=== PATIENT | male | born 1945 | race Caucasian/White ===

== ENCOUNTER → 2018-01-20 07:44 | Outpatient (CLI) | payer MEDICARE, OTHER, SELFPAY ==
--- NOTE | 2018-01-20 07:47 | DI.MRI.S_ITS ---
Caution: Report not yet finalized and possibly incomplete! PROCEDURE: MR HEAD/BRAIN WO/W CON INDICATIONS: hx of neoplasm in head. TECHNIQUE: Noncontrast axial T1 spin echo, axial T2 fast spin echo, sagittal and axial FLAIR, coronal T2 fast spin echo, axial gradient echo, axial diffusion and ADC through the brain. After the administration of contrast, axial and coronal 3D VIBE or T1 spin echo with fat saturation through the brain. COMPARISON: [facility], MR, BRAIN WITH CONTRAST, 03/19/2017, 18:16. [facility], MR, BRAIN WITHOUT CONTRAST, 01/05/2017, 7:51. [facility], CT, HEAD W&WO CONTRAST, 08/28/2016, 8:34. FINDINGS: Image quality: Excellent. CSF Spaces: Basal cisterns are patent. No extra-axial fluid collections. Ventricles are normal in size and shape. Brain: No midline shift. No intracranial bleeds or masses. There is moderate, diffuse cerebral volume loss. Mild periventricular and subcortical white matter chronic microvascular ischemic changes are noted. No abnormal intracranial enhancement. The brainstem appears normal. Diffusion-weighted images demonstrate no acute ischemic insults. No chronic ischemic insults. Small focus of subtle increased T2 signal and hypointense GRE signal identified in the left lamas radiata is stable in size and contour compared to 01/05/17. Subtle, striated postcontrast enhancement associated with the left lamas radiata lesion is stable compared to prior examination. Normal intravascular flow voids are present. Skull and face: Calvarial marrow is normal in signal. Orbits appear normal. Sinuses: Sinuses and mastoids appear clear. IMPRESSION: 1. Stable examination compared to 01/05/17 and 03/19/2017. 2. Small left lamas radiata lesion is stable in appearance compared to prior examinations. Dictated by: Mandi Rutherford MD, PhD on 01/20/2018 at 11:16 Approved by: Mandi Rutherford MD, PhD on 01/21/2018 at 9:23
[2018-01-20 08:14] LABS: Add Manual Diff / Slide Review NO; Basophils Percent Auto 0.9 % (0-2); Eosinophils Percent Auto 1.4 % (2-4); Hematocrit 35.6 % (41-53); Hemoglobin 12.5 g/dL (13.5-17.5); Mean Corpuscular HGB Conc 35.1 % (30-36); Mean Corpuscular Hemoglobin 33.6 PG (26-34); Mean Corpuscular Volume 95.6 fL (80-100); Monocytes Percent Auto 8.3 % (3-14); Neutrophils Absolute Auto 3200 /uL (3000-5900); Neutrophils Percent Auto 76.4 % (50-75); Platelet Count 188 X10^3/uL (150-400); Red Blood Cell Count 3.72 X10^6/uL (4.5-5.9); Red Cell Distribution Width 13.4 % (11.6-14.8); White Blood Cell Count 4.1 X10^3/uL (4.5-11.0)
[2018-01-20 08:31] LABS: Alanine Aminotransferase 26 IU/L (21-72); Albumin 4.1 g/dL (3.5-5.0); Albumin Globulin Ratio 1.5 (1.0-2.8); Alkaline Phosphatase 95 U/L (38-126); Aspartate Aminotransferase 39 IU/L (17-59); BUN Creatinine Ratio 11.3 (6-22); Bilirubin Total 0.4 mg/dL (0.2-1.3); Blood Urea Nitrogen 9 mg/dL (9-20); Calcium 8.8 mg/dL (8.4-10.2); Carbon Dioxide 33 mmol/L (22-32); Chloride 95 mmol/L (98-107); Estimated Glomerular Filt Rate > 60.0 mL/min (>60); Globulin 2.7 g/dL (1.7-4.1); Glucose 85 mg/dL (80-110); HEMOLYSIS < 15 (0-50); Potassium 3.6 mmol/L (3.4-5.1); Sodium 136 mmol/L (137-145); Total Protein 6.8 g/dL (6.3-8.2)
[2018-01-20 08:53] LABS: Free T3, Triiodothyronine Free 1.61 pg/mL (2.77-5.27)
[2018-01-20 10:48] LABS: Appearance Urine UA CLEAR; Bilirubin Urine UA NEGATIVE (NEGATIVE); Color Urine UA YELLOW; Glucose Urine UA NEGATIVE (Normal); Ketones Urine UA NEGATIVE (NEGATIVE); Leukocyte Esterase Urine UA NEGATIVE (NEGATIVE); Nitrite Urine UA NEGATIVE (Negative); Occult Blood Urine UA NEGATIVE (Negative); Protein Urine UA NEGATIVE (Negative); Specific Gravity Urine UA 1.015 (1.000-1.035); Urobilinogen Urine UA 0.2 E.U./dL (0.2)
== END ==
PROVIDERS: PCP Family Medicine; Visit Provider Family Medicine
DX: R41.3 Other amnesia (principal); G93.9 Disorder of brain, unspecified; E03.9 Hypothyroidism, unspecified; G30.9 Alzheimer's disease, unspecified; F02.80 Dementia in other diseases classified elsewhere, unspecified severity, without behavioral disturbance, psychotic disturbance, mood disturbance, and anxiety; Z51.81 Encounter for therapeutic drug level monitoring; Z85.89 Personal history of malignant neoplasm of other organs and systems
CPT/HCPCS: 36415; 70553; 80053; 81003; 84439; 84443; 84481; 85025; A9579

== ENCOUNTER → 2018-02-07 14:26 | Outpatient (CLI) | payer MEDICARE, OTHER, SELFPAY ==
[2018-02-07 15:37] LABS: Add Manual Diff / Slide Review NO; Basophils Percent Auto 0.9 % (0-2); Eosinophils Percent Auto 0.7 % (2-4); Hematocrit 37.9 % (41-53); Lymphocytes Percent Auto 12.9 % (25-40); Mean Corpuscular HGB Conc 34.2 % (30-36); Mean Corpuscular Hemoglobin 33.3 PG (26-34); Mean Corpuscular Volume 97.3 fL (80-100); Monocytes Percent Auto 9.4 % (3-14); Neutrophils Absolute Auto 3200 /uL (3000-5900); Neutrophils Percent Auto 76.1 % (50-75); Platelet Count 200 X10^3/uL (150-400); Red Blood Cell Count 3.89 X10^6/uL (4.5-5.9); Red Cell Distribution Width 13.2 % (11.6-14.8); White Blood Cell Count 4.3 X10^3/uL (4.5-11.0)
[2018-02-07 15:47] LABS: Alanine Aminotransferase 37 IU/L (21-72); Albumin 4.5 g/dL (3.5-5.0); Albumin Globulin Ratio 1.5 (1.0-2.8); Alkaline Phosphatase 66 U/L (38-126); Aspartate Aminotransferase 28 IU/L (17-59); BUN Creatinine Ratio 21.3 (6-22); Bilirubin Total 0.8 mg/dL (0.2-1.3); Blood Urea Nitrogen 17 mg/dL (9-20); Calcium 9.4 mg/dL (8.4-10.2); Carbon Dioxide 32 mmol/L (22-32); Chloride 99 mmol/L (98-107); Estimated Glomerular Filt Rate > 60.0 mL/min (>60); Glucose 102 mg/dL (80-110); HEMOLYSIS < 15 (0-50); Potassium 4.3 mmol/L (3.4-5.1); Sodium 141 mmol/L (137-145); Total Protein 7.5 g/dL (6.3-8.2)
== END ==
PROVIDERS: Family Provider Family Medicine; PCP Family Medicine; Visit Provider Internal Medicine Hematology & Oncology
DX: Z08 Encounter for follow-up examination after completed treatment for malignant neoplasm (principal); Z85.818 Personal history of malignant neoplasm of other sites of lip, oral cavity, and pharynx
CPT/HCPCS: 36415; 80053; 85025

== ENCOUNTER → 2018-02-14 12:58 | Oncology outpatient (ONC) | payer MEDICARE, OTHER, SELFPAY ==
--- NOTE | 2018-02-14 13:23 | ONC.PN ---
PN -Subjective Interval history: Mr. 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 Thereafter patient has been followed by Dr. Tristan Souza as well as at [facility]. He was evaluated by Dr. Del Cid about a year ago. No evidence of disease recurrence or metastasis. He presents here today for scheduled once a year follow-up visit. He is still seeing Dr. Souza. The most recent visit was within last 6 months according to his brother Kaity. Patient lives across where Dr. Souza lives. Dr. Souza did not see any new growth, no follow up visit and no referral. Patient has left neck tightness and pain. He is seen by Dr. Adler and Dr. Tyrell Street and is getting Botox injection every 3 months. He felt better, and neck becomes less tight. He does not have dysphagia. He is still feeling dryness of the mouth. He does not have any new pain. During today's visit, he seems to have problems with memory. He seems not able to understand some questions correctly. No headache. He has good appetite. No nausea and vomiting. No abdminal pain. No diarrhea and no constipation. He is being followed at [facility] for Alzheimer's dissease. - Additional ROS All systems PM: reviewed and no additional remarkable complaints except as stated Home Medications and Allergies Home Medications Medication Instructions Recorded Confirmed Type [MULTIVITAMIN] #0 10/19/12 02/14/18 History [OMEGA 3] QWEEK #0 10/19/12 02/14/18 History nifedipine 30 mg PO QDAY #30 tab 04/06/17 02/14/18 Rx donepezil [Aricept] 10 mg PO HS #90 tab 05/18/17 02/14/18 Rx cyclobenzaprine 10 mg PO HS PRN 02/14/18 History levothyroxine 200 mcg tablet 200 mcg PO DAILY #30 tab 02/14/18 Rx Allergies Allergy/AdvReac Type Severity Reaction Status Date / Time No Known Drug Allergies Allergy Verified 02/14/18 09:33 Exam Vital signs: Last Vital Signs Temp 98.1 F 02/14/18 13:24 Pulse 62 02/14/18 13:24 Resp 18 02/14/18 13:24 BP 144/82 H 02/14/18 13:24 Pulse Ox 98 02/14/18 13:24 ECOG 1 Narrative: Constitutional: WDWN, NAD, average body habitus, well groomed, pleasant and cooperative, accompanied by his brother HEENT: NCAT, EOMI, PERRLA, anicteric sclera, no hearing difficulty; Oral mucus membrane moist and without ulcers. Neck: Supple, symmetrical, and tracheal midline; No palpable thyromegaly and no palpable lymph nodes. Respiratory: No use of accessory muscles. Clear to auscultation, and no wheezes or rales or rubs. Cardiovascular: Regular rate and rhythm, S1 and S2 normal, no murmurs gallops or rubs. No JVD. No pitting edema of lower extremities. Abdomen: Soft, nontender, non-distended, bowel sounds normal, no palpable organomegaly, no hernia, no palpable masses. Lower extremities: No palpable pedal edema. Lymphatic: no palpable lymph nodes in the neck, axillae, or groins. Musculoskeletal: normal gait and station, no clubbing, no cyanosis, no pitting edema. Skin: no rashes, no ulcers, no petechiae Neurological: Awake and alert and oriented x3. CN II-XII grossly intact. No focal motor or sensory deficit. Psychiatric: normal affect, cooperative, no depression, no anxiety. Not able to understand and answer questions appropriately. Results - Labs Reviewed. Assessment and Plan (1) History of malignant neoplasm of head and neck Assessment and Plan: Clinically I do not think there is any a dense disease recurrence or metastasis. And I agree with Dr. albrecht it is most likely that his left-sided tonsil squamous cell carcinoma have been cured. I talked with the patient and encouraged him to continue to follow up with ENT physician Dr. Tristan Souza as scheduled. And I will schedule him to come back to see us in about a year.
[2018-02-14 13:24] VITALS: BP 144/82; PULSE 62; RESP 18; TEMP 36.7; O2SAT 98
== END ==
PROVIDERS: Family Provider Family Medicine; PCP Family Medicine; Visit Provider Internal Medicine Hematology & Oncology
DX: Z08 Encounter for follow-up examination after completed treatment for malignant neoplasm (principal); Z85.818 Personal history of malignant neoplasm of other sites of lip, oral cavity, and pharynx
CPT/HCPCS: 99214

== ENCOUNTER 2018-03-03 01:45 | Emergency (ER) | payer MEDICARE, OTHER, SELFPAY ==
[2018-03-03 02:05] VITALS: BP 171/96; PULSE 83; RESP 17; TEMP 36.6; O2SAT 100; BMI 19.0
--- NOTE | 2018-03-03 02:24 | ED.AMS ---
HPI - Altered Mental Status General Chief Complaint: Altered Mental Status Stated Complaint: OUT OF IT AND CONFUSED Time Seen by Provider: 03/03/18 01:54 Source: patient Mode of arrival: ambulatory Limitations: altered mental status History of Present Illness HPI narrative: 72-year-old male, former smoker presents with confusion. He is brought by police for evaluation and was found wandering. He lives locally and has had extensive workups for his gradual onset Alzheimer's. He denies any symptoms and there are no signs of obvious injury. MD complaint: confusion Onset (ago): unknown Severity: moderate Context: history of similar presentation Associated symptoms: denies other symptoms Related Data Home Medications Medication Instructions Recorded Confirmed [MULTIVITAMIN] #0 10/19/12 02/14/18 [OMEGA 3] QWEEK #0 10/19/12 02/14/18 cyclobenzaprine 10 mg PO HS PRN 02/14/18 Previous Rx's Medication Instructions Recorded nifedipine 30 mg PO QDAY #30 tab 04/06/17 donepezil [Aricept] 10 mg PO HS #90 tab 05/18/17 levothyroxine 200 mcg tablet 200 mcg PO DAILY #30 tab 02/14/18 Allergies Allergy/AdvReac Type Severity Reaction Status Date / Time No Known Drug Allergies Allergy Verified 02/14/18 09:33 Review of Systems Review of Systems All systems reviewed & are unremarkable except as noted in HPI and below Constitutional Denies chills, Denies fever(s), Denies lethargy and Denies weakness Eyes Denies change in vision, Denies eye discharge, Denies irritation and Denies loss of vision ENT Ears, Nose, Mouth, and Throat: Denies change in voice, Denies neck pain and Denies sore throat Cardiovascular Denies chest pain, Denies irregular heart rhythm, Denies lightheadedness, Denies palpitations, Denies dyspnea, Denies dyspnea on exertion and Denies orthopnea Respiratory Denies cough, Denies dyspnea, Denies dyspnea on exertion and Denies wheezing Gastrointestinal Gastrointestinal: Denies abdominal pain, Denies change in bowel habits, Denies diarrhea, Denies nausea and Denies vomiting Genitourinary Denies hematuria, Denies flank pain, Denies urinary incontinence and Denies urinary urgency Musculoskeletal Denies neck pain Integumentary/Breasts Denies pruritus, Denies erythema, Denies rash and Denies wounds Neurologic Reports confusion, Denies loss of vision and Denies weakness Psychiatric Denies anxiety, Reports confusion, Denies depression, Denies homicidal ideation and Denies suicidal ideation Endocrine Denies palpitations Hematologic/Lymphatic Denies easy bruising Allergic/Immunologic Denies wheezing Exam Narrative Exam Narrative: GEN: Pleasantly confused, he knows his name and that he is from [place] but is unclear on his address. He does state he lives alone EYES: Pupils are equal, round, and reactive to light and accommodation. Extraoccular muscles are intact bilaterally. There is no subconjunctival hemorrhage or exudate. CHEST: Lungs are clear to auscultation bilaterally and free of wheezes, rales, or rhonchi. Heart rate is regular rhythm, there are no murmurs, clicks, rubs, or gallops. There is no chest wall tenderness. ABD: Abdomen is soft and nontender. There is no guarding or rebound. Bowel sounds are normal in all 4 quadrants. There is no mass or organomegaly. EXT: Full painless ROM of all extremities with no loss of sensation or strength. SKIN: Warm, pink, and dry. 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 He states that this is the baseline for his brother and he wants to come pick him up and take him home to take care of him. He requests that we do not perform any testing as this has been done on multiple occasions Vital Signs - 8 hr 03/03/18 02:05 Temperature 97.9 F Pulse Rate 83 Respiratory Rate 17 Blood Pressure 171/96 H Pulse Oximetry 100 Discharge Plan Departure Patient Disposition: Home Clinical Impression: Dementia Instructions: Dementia Activity Restrictions/Additional Instructions: *You have been diagnosed with [dementia ] *What to do: * continue to take medications as directed *Follow up with your primary care provider in 2-3 days, call for an appointment. Let them know you were seen in the Emergency Department and that we ask that you be seen in follow up *Return to ER if you should have any new, worsening or concerning symptoms Prescriptions: No Action levothyroxine 200 mcg tablet 200 mcg PO DAILY Qty: 30 RF: 2 [MULTIVITAMIN] Qty: 0 RF: 0 [OMEGA 3] QWEEK Qty: 0 RF: 0 nifedipine 30 MG tablet extended release 24hr 30 mg PO QDAY Qty: 30 RF: 3 donepezil [Aricept] 10 MG tablet 10 mg PO HS Qty: 90 RF: 3 cyclobenzaprine 10 MG tablet 10 mg PO HS PRN (Reason: Muscle Pain) RF: 0
--- NOTE | 2018-03-03 02:29 | PC.NURSE ---
I spoke to his brother Kaity who is a retired dentist and lives near [place].He told me he would come and take his brother home with him.He told me his brother was recently diagnosed with dementia at the the [facility]
[2018-03-03 03:35] VITALS: BP 166/85; PULSE 80; RESP 16; O2SAT 98
== END 2018-03-03 03:37 | disposition home or self-care (01) ==
PROVIDERS: Emergency Provider Emergency Medicine; Family Provider Family Medicine; PCP Family Medicine
DX: F03.90 Unspecified dementia, unspecified severity, without behavioral disturbance, psychotic disturbance, mood disturbance, and anxiety (principal)
CPT/HCPCS: 99282

== ENCOUNTER → 2018-05-16 10:42 | Outpatient (CLI) | payer MEDICARE, OTHER, SELFPAY ==
[2018-05-16 12:17] LABS: Free T3, Triiodothyronine Free 3.01 pg/mL (2.77-5.27); Free T4, Direct Thyroxine 1.33 ng/dL (0.78-2.19)
[2018-05-16 12:31] LABS: Thyroid Stimulating Hormone 4.43 uIU/mL (0.47-4.68)
== END ==
PROVIDERS: PCP Family Medicine; Visit Provider Family Medicine
DX: E03.9 Hypothyroidism, unspecified (principal)
CPT/HCPCS: 36415; 84439; 84443; 84481

== ENCOUNTER → 2018-06-23 10:06 | Outpatient (CLI) | payer MEDICARE, OTHER, SELFPAY ==
[2018-06-23 12:23] LABS: Alanine Aminotransferase 22 IU/L (21-72); Albumin 4.5 g/dL (3.5-5.0); Albumin Globulin Ratio 1.6 (1.0-2.8); Alkaline Phosphatase 76 U/L (38-126); Aspartate Aminotransferase 21 IU/L (17-59); Bilirubin Total 0.6 mg/dL (0.2-1.3); Blood Urea Nitrogen 18 mg/dL (9-20); Calcium 9.5 mg/dL (8.4-10.2); Carbon Dioxide 32 mmol/L (22-32); Chloride 97 mmol/L (98-107); Estimated Glomerular Filt Rate > 60.0 mL/min (>60); Globulin 2.9 g/dL (1.7-4.1); Glucose 87 mg/dL (80-110); HEMOLYSIS < 15 (0-50); Sodium 138 mmol/L (137-145); Total Protein 7.4 g/dL (6.3-8.2)
[2018-06-23 12:34] LABS: Free T3, Triiodothyronine Free 3.03 pg/mL (2.77-5.27); Free T4, Direct Thyroxine 1.27 ng/dL (0.78-2.19)
[2018-06-23 12:48] LABS: Thyroid Stimulating Hormone 4.38 uIU/mL (0.47-4.68)
== END ==
PROVIDERS: PCP Family Medicine; Visit Provider Family Medicine
DX: E03.9 Hypothyroidism, unspecified (principal); Z51.81 Encounter for therapeutic drug level monitoring
CPT/HCPCS: 36415; 80053; 84439; 84443; 84481